=== PATIENT | male | born 1955 | race Caucasian/White ===

== ENCOUNTER 2017-09-14 05:19 | Inpatient (IN) | payer OTHER ==
[~2017-09-14 05:19] MED LIST: LACTATED RINGER'S 1,000 ML IV*
[2017-09-14] MEDS: CEFAZOLIN 2 GM/50 ML (PMX) 50 ML IVPB (06:58)
[2017-09-14] MEDS ORDERED: CEFAZOLIN 1 GM INJ (07:00)
[2017-09-14] MEDS ORDERED: SUCCINYLCHOLINE CHLORIDE 100 MG/5 ML SYG IV (07:10)
[2017-09-14] MEDS ORDERED: ROCURONIUM 50 MG INJ (07:10)
[2017-09-14] MEDS ORDERED: PROPOFOL 20 ML ×2 (07:10→08:10)
[2017-09-14] MEDS ORDERED: LIDOCAINE 2% (SDV) 5 ML INJ (07:10)
[2017-09-14] MEDS ORDERED: MIDAZOLAM 1 MG/ML 2 ML INJ (07:10)
[2017-09-14] MEDS ORDERED: FAMOTIDINE 20 MG INJ (07:53)
[2017-09-14] MEDS ORDERED: ONDANSETRON 4 MG INJ (07:53)
[2017-09-14] MEDS ORDERED: EPHEDrine SULFATE 50 MG/5 ML SYG (07:56)
[2017-09-14] MEDS ORDERED: PHENYLephrine (100 MCG/ML) 5ML SYG (08:00)
[2017-09-14] MEDS ORDERED: SUGAMMADEX SODIUM 200 MG/2 ML VIAL IV (08:32)
[2017-09-14] MEDS ORDERED: OXYCODONE/ACETAMINOPHEN (5/325) TAB PO (09:00)
[2017-09-14] MEDS ORDERED: FENTAnyl 50 MCG/ML VIAL IV (09:00)
[2017-09-14] MEDS ORDERED: MEPERIDINE 25 MG INJ IV (09:00)
[2017-09-14] MEDS ORDERED: ONDANSETRON 4 MG INJ IV ×2 (09:00→09:30)
[2017-09-14] MEDS ORDERED: HYDROmorphONE (0.2 MG/ML) 10ML SYG IV (09:00)
[2017-09-14] MEDS ORDERED: DIPHENHYDRAMINE 50 MG INJ IV (09:00)
[2017-09-14] MEDS ORDERED: PROCHLORPERAZINE 10 MG INJ IV (09:00)
[2017-09-14] MEDS: POLYMYXIN/BACITRACIN 1L IRRIG (09:08)
[2017-09-14] MEDS: GELATIN SIZE 100 SPONGE (09:08)
[2017-09-14] MEDS: THROMBIN 5000 UNIT VIAL (09:08)
[2017-09-14] MEDS: BUPIVACAINE 0.25% (MPF) 30 ML INJ (09:08)
[2017-09-14] MEDS ORDERED: PROCHLORPERAZINE 10 MG TAB PO (09:30)
[2017-09-14] MEDS ORDERED: NALOXONE (0.4 MG/ML) INJ IV (09:30)
[2017-09-14] MEDS ORDERED: hydrALAzine 20 MG INJ IV (09:30)
[2017-09-14] MEDS ORDERED: ZOLPIDEM 5 MG TAB PO (09:30)
[2017-09-14] MEDS ORDERED: BETHANECHOL 25 MG TAB PO (09:30)
[2017-09-14] MEDS ORDERED: TRIMETHOBENZAMIDE 100 MG/ML VIAL IM (09:30)
[2017-09-14] MEDS ORDERED: AL HYDROX/MG HYDROX/SIMETH 30 ML CUP PO (09:30)
[2017-09-14] MEDS ORDERED: HYDROCODONE/APAP (5/325) TAB PO ×2 (09:30)
[2017-09-14] MEDS ORDERED: CEPASTAT LOZENGE MT (09:30)
[2017-09-14] MEDS ORDERED: DIPHENHYDRAMINE 50 MG CAP PO (09:30)
[2017-09-14] MEDS ORDERED: DIAZEPAM 5 MG/ML SYG IM (09:30)
[2017-09-14] MEDS ORDERED: NACL 0.9% 3 ML SYG IV (09:30)
[2017-09-14] MEDS ORDERED: LABETALOL HCL 20MG INJ IV (09:30)
[2017-09-14] MEDS ORDERED: ACETAMINOPHEN 325 MG TAB PO (09:30)
[2017-09-14] MEDS ORDERED: DIAZEPAM 5 MG TAB PO (09:30)
[2017-09-14] MEDS: HYDROmorphONE 0.2 MG/ML PCA IV (09:32)
[2017-09-14] MEDS: DEXTROSE 5%-0.45% NACL 1,000 ML IV (11:34)
[2017-09-14] MEDS: CEFAZOLIN 1 GM/50 ML (PMX) 50 ML IVPB ×3 (11:34→23:58)
[2017-09-14] MEDS ORDERED: GLUCOSE GEL 15 GRAM TUBE BUCCAL (20:30)
[2017-09-14] MEDS ORDERED: GLUCOSE GEL 15 GRAM TUBE PO ×2 (20:30)
[2017-09-14] MEDS ORDERED: DEXTROSE 50% 50 ML SYRINGE IV ×2 (20:30)
[2017-09-14] MEDS ORDERED: GLUCAGON 1 MG INJ IM (20:30)
[2017-09-14] MEDS: DOCUSATE SODIUM 100 MG CAP PO (21:00)
[2017-09-14] MEDS: SOD CHLORIDE 0.45% 1,000 ML IV (21:00)
[2017-09-14] MEDS: RANITIDINE 150 MG TAB PO (21:00)
[2017-09-14] MEDS: LOSARTAN 25 MG TAB PO (21:01)
[2017-09-15] MEDS: CEFAZOLIN 1 GM/50 ML (PMX) 50 ML IVPB (05:37)
[2017-09-15 05:41] LABS: HEMATOCRIT 42.3 % (42.0-52.0); HEMOGLOBIN 13.4 g/dl (14.0-18.0)
[2017-09-15] MEDS: SOD CHLORIDE 0.45% 1,000 ML IV (06:00)
[2017-09-15 06:19] LABS: ANION GAP 12 (8-16); BLOOD UREA NITROGEN 14 mg/dl (7-20); CALCIUM 8.6 mg/dl (8.4-10.2); CARBON DIOXIDE 31 mmol/L (21-31); CHLORIDE 101 mmol/L (97-110); CREATININE 0.82 mg/dl (0.61-1.24); GLUCOSE 143 mg/dl (70-220); POTASSIUM 3.8 mmol/L (3.5-5.1); SODIUM 140 mmol/L (135-144)
[2017-09-15] MEDS ORDERED: BETHANECHOL 25 MG TAB PO (08:00)
[2017-09-15] MEDS: DOCUSATE SODIUM 100 MG CAP PO (08:46)
[2017-09-15] MEDS: ASCORBIC ACID 500 MG TAB PO (08:46)
[2017-09-15] MEDS: RANITIDINE 150 MG TAB PO (08:46)
[2017-09-15] MEDS: LOSARTAN 25 MG TAB PO (08:47)
[2017-09-15] MEDS: metFORMIN 500 MG TAB PO (08:49)
[2017-09-15] MEDS: FERROUS SULFATE (EC) 325 MG TAB PO ×2 (08:49→12:48)
[2017-09-15] MEDS: INFLUENZA VIRUS VACCINE 0.5 ML SYG IM* (12:52)
[2017-09-15 14:28] LABS: ADD UMIC NO; UR ASCORBIC ACID 40 mg/dL (NEGATIVE); UR BILIRUBIN (Dip) NEGATIVE (NEGATIVE); UR BLOOD (Dip) NEGATIVE (NEGATIVE); UR CLARITY CLEAR (CLEAR); UR COLOR YELLOW (YELLOW); UR GLUCOSE (Dip) 1+ mg/dL (NEGATIVE); UR KETONES (Dip) NEGATIVE (NEGATIVE); UR LEUKOCYTE ESTERASE (Dip) NEGATIVE Leu/ul (NEGATIVE); UR NITRITE (Dip) NEGATIVE (NEGATIVE); UR TOTAL PROTEIN (Dip) NEGATIVE (NEGATIVE); UR UROBILINOGEN (Dip) NEGATIVE (NEGATIVE)
== END 2017-09-15 14:13 | disposition home or self-care (01) | DRG 520 ==
LOC: REC 05:19 → MS1 11:20
PROVIDERS: Orthopaedic Surgery
PROC: 0SB20ZZ Excision of Lumbar Vertebral Disc, Open Approach (ICD-10-PCS; principal; 2017-09-14 07:00)
PROC: 4A11X4G Monitoring of Peripheral Nervous Electrical Activity, Intraoperative, External Approach (ICD-10-PCS; 2017-09-14 07:00)
DX: M51.26 Other intervertebral disc displacement, lumbar region (principal); I10 Essential (primary) hypertension; E78.5 Hyperlipidemia, unspecified; E11.9 Type 2 diabetes mellitus without complications; J45.909 Unspecified asthma, uncomplicated
CPT/HCPCS: 72020; 80048; 81003; 82962; 85014; 85018; 86850; 86900; 86901; 86920; 90686; 97116; 97163; 97530